=== PATIENT | male | born 1995 | race Caucasian/White ===

== ENCOUNTER 2017-02-11 03:25 | Inpatient (IN) | payer OTHER ==
[2017-02-11] VITALS (9 sets, daily range): BP systolic 104–139; BP diastolic 56–65; PULSE 67–99; RESP 13–25; TEMP 97.2–98.4; O2SAT 98–100
[2017-02-11] MEDS ORDERED: DIPHTH/TETANUS/ACEL PERTUSSIS (BOOSTER) 0.5 ML VIAL/PFS IM ONE (03:27)
[2017-02-11 03:43] LABS: I-STAT POTASSIUM 4.3 MMOL/L (3.5-4.9)
[2017-02-11 03:46] LABS: AUTOMATED NEUTROPHIL # 5.8 TH/MM3 (1.8-7.7); BASOPHIL # 0.1 TH/MM3 (0-0.2); BASOPHIL % 1.4 % (0.0-2.0); EOSINOPHIL # 0.1 TH/MM3 (0-0.4); EOSINOPHIL % 0.7 % (0.0-4.0); HEMO FLAGS DIFF FINAL; LYMPH % 20.7 % (9.0-44.0); LYMPHOCYTE # 1.6 TH/MM3 (1.0-4.8); MEAN CORPUSCULAR HEMOGLOBIN 30.3 PG (27.0-34.0); MEAN CORPUSCULAR HGB CONC 34.4 % (32.0-36.0); MONO % 4.1 % (0.0-8.0); NEUT % 73.1 % (16.0-70.0); PLATELET COUNT 245 TH/MM3 (150-450); RED BLOOD COUNT 4.54 MIL/MM3 (4.50-5.90); RED CELL DISTRIBUTION WIDTH 13.2 % (11.6-17.2)
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
[2017-02-11 03:56] LABS: APTT (PATIENT) 22.6 SEC (24.3-30.1)
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
[2017-02-11] MEDS ORDERED: MORPHINE SULFATE 4 MG/ML INJ IV PUSH PRN (04:30)
[2017-02-11] MEDS ORDERED: SODIUM CHLORIDE 0.9% FLUSH 10 ML FLUSH IV FLUSH PRN ×2 (04:30→06:15)
[2017-02-11] MEDS ORDERED: ACETAMINOPHEN/HYDROcodone 325 MG/7.5 MG TAB PO PRN (04:30)
[2017-02-11] MEDS ORDERED: ONDANSETRON HCL 4 MG/2 ML VIAL IV PUSH PRN (04:30)
--- NOTE | 2017-02-11 04:55 | PD ---
Physical Exam Date Seen by Provider: Feb 11, 2017 Time Seen by Provider: 04:49 Narrative Skin: Patient has 4 suturable lacerations involving the face. The first laceration just lateral to the nose measuring 1 cm. The second laceration measures 3 cm and involves the left upper eyelid and eyebrow. The third laceration involves the left cheek and measures 8 cm. The fourth laceration measures 4 cm to the left cheek as well. Data Data Orders Orders Anyi-Nlz-Cydloj (Booster) Inj (Boostrix (02/11/17 03:27) I-Stat Profile (02/11/17 03:35) I-Stat Creatinine (02/11/17 03:35) Complete Blood Count With Diff (02/11/17 03:35) Prothrombin Time / Inr (Pt) (02/11/17 03:35) Act Partial Throm Time (Ptt) (02/11/17 03:35) Type And Screen (02/11/17 03:35) Alcohol (Ethanol) (02/11/17 03:35) Chest, Single Ap (02/11/17 03:35) Pelvis, Ap Only (Routine) (02/11/17 03:35) Ct Brain W/O Iv Contrast(Rout) (02/11/17 03:35) Ct Cerv Spine W/O Contrast (02/11/17 03:35) Ct Abd/Pel W Iv Contrast(Rout) (02/11/17 03:35) Ct Facial Bones W/O Iv Cont (02/11/17 03:35) Iv Access Insert/Monitor (02/11/17 03:35) Ecg Monitoring (02/11/17 03:35) Oximetry (02/11/17 03:35) Oxygen Administration (02/11/17 03:35) Femur, One View (02/11/17 ) Admit Order (Ed Use Only) (02/11/17 04:25) Activity Bed Rest With Brp (02/11/17 04:25) Vital Signs (Adult) Q1H (02/11/17 04:25) Diet Npo (02/11/17 Breakfast) Sodium Chlor 0.9% 1000 Ml Inj (Ns 1000 M (02/11/17 04:25) Sodium Chloride 0.9% Flush (Ns Flush) (02/11/17 04:30) Sodium Chloride 0.9% Flush (Ns Flush) (02/11/17 09:00) Acetaminophen (Tylenol) (02/11/17 04:30) Acetamin-Hydrocod 325-7.5 Mg ([place] 7.5 (02/11/17 04:30) Morphine Inj (Morphine Inj) (02/11/17 04:30) Ondansetron Inj (Zofran Inj) (02/11/17 04:30) Consult Neurosurgery (02/11/17 ) Labs Laboratory Tests Test 02/11/17 03:28 White Blood Count 8.0 TH/MM3 Red Blood Count 4.54 MIL/MM3 Hemoglobin 13.7 GM/DL Bedside Hemoglobin 13.3 G/DL Hematocrit 40.0 % Bedside Hematocrit 39.0 % Mean Corpuscular Volume 88.0 FL Mean Corpuscular Hemoglobin 30.3 PG Mean Corpuscular Hemoglobin Concent 34.4 % Red Cell Distribution Width 13.2 % Platelet Count 245 TH/MM3 Mean Platelet Volume 7.0 FL Neutrophils (%) (Auto) 73.1 % Lymphocytes (%) (Auto) 20.7 % Monocytes (%) (Auto) 4.1 % Eosinophils (%) (Auto) 0.7 % Basophils (%) (Auto) 1.4 % Neutrophils # (Auto) 5.8 TH/MM3 Lymphocytes # (Auto) 1.6 TH/MM3 Monocytes # (Auto) 0.3 TH/MM3 Eosinophils # (Auto) 0.1 TH/MM3 Basophils # (Auto) 0.1 TH/MM3 CBC Comment DIFF FINAL Differential Comment Prothrombin Time 10.0 SEC Prothromb Time International Ratio 1.0 RATIO Activated Partial Thromboplast Time 22.6 SEC Bedside Sodium 144 MMOL/L Bedside Potassium 4.3 MMOL/L Bedside Chloride 105 MMOL/L Bedside Blood Urea Nitrogen 12 MG/DL Bedside Creatinine 1.3 MG/DL Bedside Glucose 123 MG/DL Ethyl Alcohol Level 290 MG/DL [facility] Medical Record Reviewed: Yes Supervised Visit with RIGOBERTO: Yes Interpretation(s) Last 24 hours Impressions Pelvis X-Ray 02/11/17334 Signed Impressions: Service Date/Time: Saturday, February 11, 2017 03:29 - CONCLUSION: Grossly negative trauma pelvis Humza Pacheco MD Maxillofacial CT 02/11/17334 Signed Impressions: Service Date/Time: Saturday, February 11, 2017 03:31 - CONCLUSION: Nasal bone fracture. Left TMJ dislocation. Humza Pacheco MD Head CT 02/11/17 0335 Signed Impressions: Service Date/Time: Saturday, February 11, 2017 03:29 - CONCLUSION: Mild brain contusion, mainly in the left frontal region and minimal parafalcine extra- axial blood. Humza Pacheco MD Chest X-Ray 02/11/17 0335 Signed Impressions: Service Date/Time: Saturday, February 11, 2017 03:29 - CONCLUSION: Satisfactory trauma chest appearance. Humza Pacheco MD Cervical Spine CT 02/11/17 0335 Signed Impressions: Service Date/Time: Saturday, February 11, 2017 03:30 - CONCLUSION: No acute bony injury in the cervical spine. Humza Pacheco MD Abdomen/Pelvis CT 02/11/17 0335 Signed Impressions: Service Date/Time: Saturday, February 11, 2017 03:34 - CONCLUSION: Mild right lung base contusion. No acute traumatic injury in the abdomen or pelvis. Humza Pacheco MD Femur X-Ray 02/11/17 0000 Signed Impressions: Service Date/Time: Saturday, February 11, 2017 03:29 - CONCLUSION: Grossly negative limited single view evaluation of the left femur Humza Pacheco MD Differential Diagnosis MDM: High Differential diagnoses: Fracture, sprain, strain, dislocation, contusion, neurovascular injury Narrative Course Patient's lacerations are closed with sutures Procedures Procedure Narrative LACERATION LOCATION: Left cheek just lateral to the nose LENGTH: 1 cm NUMBER OF STITCHES/BRENDEN: 1 REPAIR: The area of the laceration was prepped with Betadine and sterilely draped. The laceration was infiltrated with 1% lidocaine with epinephrine]. The wound was copiously irrigated and explored without evidence of foreign body , tendon injury or neurovascular injury. The wound was closed using 6-0 proline. This was a simple single layer repair. A sterile dressing was applied. The patient was advised to keep the dressing clean and dry. Patient tolerated the procedure well. LACERATION LOCATION: Left upper eyelid/eyebrow LENGTH: 3 cm NUMBER OF STITCHES/BRENDEN: 6 REPAIR: The area of the laceration was prepped with Betadine and sterilely draped. The laceration was infiltrated with 1% lidocaine with epinephrine]. The wound was copiously irrigated and explored without evidence of foreign body , tendon injury or neurovascular injury. The wound was closed using 6-0 proline. This was a simple single layer repair. A sterile dressing was applied. The patient was advised to keep the dressing clean and dry. Patient tolerated the procedure well. LACERATION LOCATION: Left cheek cheek LENGTH: 8 cm NUMBER OF STITCHES/BRENDEN: 13 REPAIR: The area of the laceration was prepped with Betadine and sterilely draped. The laceration was infiltrated with 1% lidocaine with epinephrine]. The wound was copiously irrigated and explored without evidence of foreign body , tendon injury or neurovascular injury. The wound was closed using 6-0 proline. This was a simple single layer repair. A sterile dressing was applied. The patient was advised to keep the dressing clean and dry. Patient tolerated the procedure well. LACERATION LOCATION: Left cheek LENGTH: 4 cm NUMBER OF STITCHES/BRENDEN: 6 REPAIR: The area of the laceration was prepped with Betadine and sterilely draped. The laceration was infiltrated with 1% lidocaine with epinephrine]. The wound was copiously irrigated and explored without evidence of foreign body , tendon injury or neurovascular injury. The wound was closed using 6-0 proline. This was a simple single layer repair. A sterile dressing was applied. The patient was advised to keep the dressing clean and dry. Patient tolerated the procedure well. Diagnosis Primary Impression: Traumatic intraparenchymal hemorrhage Qualified Codes: S06.309A - Unspecified focal traumatic brain injury with loss of consciousness of unspecified duration, initial encounter Additional Impressions: Alcohol intoxication Qualified Codes: F10.920 - Alcohol use, unspecified with intoxication, uncomplicated Nasal fracture Qualified Codes: S02.2XXA - Fracture of nasal bones, initial encounter for closed fracture Condition: Ricco Marroquin Feb 11, 2017 04:55
[2017-02-11] MEDS: SODIUM CHLOR 0.9% 1000 ML INJ 1,000 ML IV SCH ×2 (06:00→23:50)
[2017-02-11] MEDS ORDERED: MISCELLANEOUS NURSING INFORMATION XX SCH (06:15)
[2017-02-11] MEDS ORDERED: CHLORHEXIDINE GLUCONATE 2 % 1 PACK (2 CLOTHS) TOP PRN (06:15)
[2017-02-11] MEDS ORDERED: ENALAPRILAT 1.25 MG/ML VIAL IV PUSH PRN (06:15)
[2017-02-11] MEDS: MAGNESIUM HYDROXIDE SUSP 30 ML CUP PO SCH ×2 (09:00→21:27)
[2017-02-11] MEDS: DOCUSATE SODIUM 100 MG CAP PO SCH ×2 (09:48→21:27)
[2017-02-11] MEDS: MULTIVITAMIN INJ 10 ML, THIAMINE INJ 100 MG, FOLIC ACID INJ 1 MG in SODIUM CHLORID 0.9%... IV SCH (09:49)
[2017-02-11] MEDS: SODIUM CHLORIDE 0.9% FLUSH 10 ML FLUSH IV FLUSH SCH ×2 (09:49→21:27)
[2017-02-11] MEDS: ACETAMINOPHEN 500 MG CPLT PO PRN ×3 (09:49→18:39)
[2017-02-11] MEDS: FAMOTIDINE 20 MG TAB PO SCH ×2 (09:49→21:27)
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
[2017-02-12] VITALS: BP 117/67; PULSE 57; RESP 18; TEMP 98.3; O2SAT 97
[2017-02-12 04:00] VITALS: BP 110/66; PULSE 54; RESP 18; TEMP 97.4; O2SAT 99
[2017-02-12] MEDS ORDERED: CHLORHEXIDINE GLUCONATE 2 % 1 PACK (2 CLOTHS) TOP SCH (04:00)
[2017-02-12 04:35] LABS: AUTOMATED NEUTROPHIL # 5.6 TH/MM3 (1.8-7.7); BASOPHIL % 0.1 % (0.0-2.0); EOSINOPHIL # 0.1 TH/MM3 (0-0.4); EOSINOPHIL % 1.3 % (0.0-4.0); HEMATOCRIT 38.7 % (39.0-51.0); HEMO FLAGS DIFF FINAL; LYMPH % 28.8 % (9.0-44.0); LYMPHOCYTE # 2.5 TH/MM3 (1.0-4.8); MEAN CELL VOLUME 89.2 FL (80.0-100.0); MEAN CORPUSCULAR HEMOGLOBIN 30.7 PG (27.0-34.0); MEAN CORPUSCULAR HGB CONC 34.4 % (32.0-36.0); MONO % 6.6 % (0.0-8.0); NEUT % 63.2 % (16.0-70.0); PLATELET COUNT 219 TH/MM3 (150-450); RED BLOOD COUNT 4.34 MIL/MM3 (4.50-5.90); RED CELL DISTRIBUTION WIDTH 13.6 % (11.6-17.2); WHITE BLOOD COUNT 8.8 TH/MM3 (4.0-11.0)
[2017-02-12 04:58] LABS: ALT (GPT) 38 U/L (12-78); ANION GAP 7 MEQ/L (5-15); AST (GOT) 18 U/L (15-37); BICARBONATE 25.7 MEQ/L (21.0-32.0); BLOOD UREA NITROGEN 13 MG/DL (7-18); CHLORIDE 108 MEQ/L (98-107); GLOMERULAR FILTRATION RATE 110 ML/MIN (>89); POTASSIUM 3.8 MEQ/L (3.5-5.1); SODIUM (NA) 141 MEQ/L (136-145)
[2017-02-12 05:00] LABS: ALKALINE PHOSPHATASE 68 U/L (45-117); TOTAL BILIRUBIN ADULT 0.4 MG/DL (0.2-1.0)
--- NOTE | 2017-02-12 06:37 | RADRPT ---
EXAM DATE/TIME: 02/12/2017 05:38 [facility] COMPARISON: CHEST SINGLE AP, February 11, 2017, 3:29. INDICATIONS : Follow up trauma. Respiratory status. MEDICAL HISTORY : None. SURGICAL HISTORY : None. ENCOUNTER: Subsequent ACUITY: 4 - 6 days PAIN SCORE: 7/10 LOCATION: Bilateral chest FINDINGS: Mild right suprahilar parenchymal opacity may be mild contusion. No evidence of hemothorax or pneumot horax. Cardiac contours are unchanged. CONCLUSION: Slight right suprahilar parenchymal opacity Humza Pacheco MD on February 12, 2017 at 6:34 Board Certified Radiologist. This report was verified electronically.
[2017-02-12 08:12] VITALS: BP 115/64; PULSE 60; RESP 18; TEMP 97.7; O2SAT 98
[2017-02-12] MEDS: MULTIVITAMIN INJ 10 ML, THIAMINE INJ 100 MG, FOLIC ACID INJ 1 MG in SODIUM CHLORID 0.9%... IV SCH (08:28)
[2017-02-12] MEDS: FAMOTIDINE 20 MG TAB PO SCH (08:29)
[2017-02-12] MEDS: MAGNESIUM HYDROXIDE SUSP 30 ML CUP PO SCH (08:33)
[2017-02-12] MEDS: SODIUM CHLOR 0.9% 1000 ML INJ 1,000 ML IV SCH (08:33)
[2017-02-12] MEDS: DOCUSATE SODIUM 100 MG CAP PO SCH (08:33)
[2017-02-12] MEDS: SODIUM CHLORIDE 0.9% FLUSH 10 ML FLUSH IV FLUSH SCH (08:33)
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
[2017-02-12] MEDS ORDERED: MAGN30S PO (10:17)
[2017-02-12] MEDS ORDERED: DOCU1CAP39 PO (10:17)
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
[2017-02-12 12:10] VITALS: BP 122/56; PULSE 63; RESP 18; TEMP 98.3; O2SAT 99
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
[2017-02-12] MEDS ORDERED: NORC5TAB PO (13:23)
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
== END 2017-02-12 16:21 | disposition home or self-care (01) | DRG 965 ==
LOC: NEPE 03:25 → NEDA 04:29 → N03A 06:00 → N05A 12:34
PROVIDERS: ADMIT Surgery; ATTEND Surgery
PROC: 0HQ1XZZ Repair Face Skin, External Approach (ICD-10-PCS; principal; 2017-02-11)
PROC: 08QPXZZ Repair Left Upper Eyelid, External Approach (ICD-10-PCS; 2017-02-11)
DX: S06.6X9A Traumatic subarachnoid hemorrhage with loss of consciousness of unspecified duration, initial encounter (principal); S27.321A Contusion of lung, unilateral, initial encounter; S01.112A Laceration without foreign body of left eyelid and periocular area, initial encounter; S02.2XXA Fracture of nasal bones, initial encounter for closed fracture; F10.129 Alcohol abuse with intoxication, unspecified; S70.11XA Contusion of right thigh, initial encounter; R40.2431 Glasgow coma scale score 3-8, in the field [EMT or ambulance]; S01.81XA Laceration without foreign body of other part of head, initial encounter; S70.12XA Contusion of left thigh, initial encounter; S03.02XA Dislocation of jaw, left side, initial encounter; S06.5X9A Traumatic subdural hemorrhage with loss of consciousness of unspecified duration, initial encounter; S92.353A Displaced fracture of fifth metatarsal bone, unspecified foot, initial encounter for closed fracture; S06.2X9A Diffuse traumatic brain injury with loss of consciousness of unspecified duration, initial encounter; S01.412A Laceration without foreign body of left cheek and temporomandibular area, initial encounter; F17.200 Nicotine dependence, unspecified, uncomplicated; V43.52XA Car driver injured in collision with other type car in traffic accident, initial encounter; Y90.8 Blood alcohol level of 240 mg/100 ml or more; Y92.410 Unspecified street and highway as the place of occurrence of the external cause
CPT/HCPCS: 12016; 70450; 70486; 71010; 72125; 72170; 73551; 73610; 73630; 74177; 80053; 80307; 82435; 82565; 82947; 84132; 84295; 84520; 85025; 85610; 85730; 86850; 86900; 86901; 87641; 90471; 90715; 94150; 99291; G0390; J3411; J7030; J7040; L2114